=== PATIENT | male | born 2000 | race Two or more races ===

== ENCOUNTER 2020-03-03 21:56 | Emergency (ER) | payer MEDICAID, OTHER ==
[~2020-03-03] VITALS: Ht 175.3 cm; Wt 108.9 kg
[2020-03-03 23:09] VITALS: BP 131/85
== END 2020-03-04 03:27 | disposition home or self-care (01) ==
LOC: ER 21:56
DX: F41.9 Anxiety disorder, unspecified (principal); K02.9 Dental caries, unspecified
CPT/HCPCS: 70450